=== PATIENT | female | born 1970 | race Two or more races ===

== ENCOUNTER 2023-12-15 19:15 | Emergency (ER) | payer MEDICAID, OTHER ==
[~2023-12-15] VITALS: Ht 162.6 cm; Wt 122.5 kg
[2023-12-15] MEDS: TETANUS-DIPTH-ACEL PERTUSSIS 0.5ML SYR Tdap IM ONE (20:14)
[2023-12-15] MEDS: cefTRIAXone SOD 1,000 MG VL IM ONE (20:15)
[2023-12-15 22:20] VITALS: BP 142/86; PULSE 88; RESP 16; TEMP 98.6; O2SAT 97
[2023-12-15] MEDS: LIDOCAINE 1% HCL (LOCAL ANESTH.) INJ 20ML MDV ID ONE (23:30)
[2023-12-16] MEDS ORDERED: IBUP-1456 PO (00:54)
[2023-12-16] MEDS ORDERED: CIPR500T4 PO (00:54)
== END 2023-12-16 02:38 | disposition home or self-care (01) ==
LOC: EDBD 19:15 → ER 19:15
DX: S90.852A Superficial foreign body, left foot, initial encounter (principal); Z88.0 Allergy status to penicillin; Z88.8 Allergy status to other drugs, medicaments and biological substances; Z79.899 Other long term (current) drug therapy; X58.XXXA Exposure to other specified factors, initial encounter; Y93.89 Activity, other specified; Y92.89 Other specified places as the place of occurrence of the external cause; Y99.8 Other external cause status
CPT/HCPCS: 73620; 73630; 90471; 90715; 96372; 99284; J0696; J2001